=== PATIENT | female | born 1960 | race Caucasian/White ===

== ENCOUNTER → 2016-10-21 | Day surgery (SDC) | payer BC, OTHER ==
[~2016-10-21] MED LIST: Bacitracin Oint 28.35 GM Tube TOP ONE; Bupivacaine 0.25%/EPINEPHrine 1:200,000 10 ML SDV INJECT ONE; Bupivacaine 0.25%/EPINEPHrine 1:200,000 10 ML SDV ONE; Clindamycin Phosphate in D5W 600 MG in Premix Bag 50 BAG IV ONE; Lactated Ringers 1,000 ML IV SCH; Lidocaine 2% 5 ML SDV ONE; Midazolam 1 MG/ML 2 ML SDV IVPUSH ONE; Midazolam 1 MG/ML 2 ML SDV ONE; Propofol 200 MG/20 ML SDV ONE; diphenhydrAMINE 50 MG/ML SDV ONE
--- NOTE | 2016-10-21 08:57 | PCM.PREANE ---
Preanesthetic Assessment - Anesthesia/Transfusion/Family Hx Anesthesia History: Prior Anesthesia Reaction Type of Anesthesia Reaction: Excessive Nausea/Vomiting Family History of Anesthesia Reaction: No Transfusion History: No Prior Transfusion(s) - Review of Systems General: No Symptoms Pulmonary: No Symptoms Cardiovascular: No Symptoms Gastrointestinal: No symptoms Neurological: No Symptoms Other: Reports: Anxiety - Physical Assessment NPO Status Date: 10/20/16 O2 Sat by Pulse Oximetry: 94 Respiratory Rate: 15 Vital Signs: Last Vital Signs Temp 36.5 C 10/21/16 08:22 Pulse 89 10/21/16 08:22 Resp 15 10/21/16 08:22 BP 99/62 10/21/16 08:22 Pulse Ox 94 L 10/21/16 08:22 Height: 1.65 m Weight: 79.379 kg ASA Class: 2 Mental Status: Alert & Oriented x3 Airway Class: Mallampati = 2 Dentition: Reports: Normal Dentition ROM/Head Extension: Full Lungs: Clear to auscultation Cardiovascular: Regular Rate - Allergies Allergies/Adverse Reactions: Allergies Allergy/AdvReac Type Severity Reaction Status Date / Time codeine Allergy Agitation Verified 10/19/16 11:35 Penicillins Allergy Cannot Verified 10/19/16 11:35 Remember Sulfa (Sulfonamide Allergy Cannot Verified 10/19/16 11:35 Antibiotics) Remember - Anesthesia Plan Pre-Op Medication Ordered: Other (versed in pre op holding) - Acknowledgements Anesthesia Type Planned: MAC Pt an Appropriate Candidate for the Planned Anesthesia: Yes Alternatives and Risks of Anesthesia Discussed w Pt/Guardian: Yes Pt/Guardian Understands and Agrees with Anesthesia Plan: Yes PreAnesthesia Questionnaire HEENT History: Reports: Other (see below) Other HEENT History: wears glasses, has upper denture and lower removable partial denture, Hx of Warthin's tumor Cardiovascular History: Reports: High cholesterol Respiratory History: Reports: COPD Gastrointestinal History: Reports: None Genitourinary History: Reports: None BREAKER OILER History: Reports: None Musculoskeletal History: Reports: Arthritis, Back pain, chronic, Fracture Other Musculoskeletal History: hx of fx toes Neurological History: Reports: Migraines Psychiatric History: Reports: Anxiety, Depression, PTSD Endocrine/Metabolic History: Reports: Hyperparathyroidism Hematologic History: Reports: None Immunologic History: Reports: None Oncologic (Cancer) History: Reports: None Dermatologic History: Reports: None - Past Surgical History Head Surgeries/Procedures: Reports: None HEENT Surgical History: Reports: Tonsillectomy, Other (see below) Other HEENT Surgeries/Procedures: excision of vocal cord nodules Cardiovascular Surgical History: Reports: None Respiratory Surgical History: Reports: None GI Surgical History: Reports: None Female Surgical History: Reports: Cervical cryotherapy, Hysterectomy, Tubal ligation Endocrine Surgical History: Reports: Parathyroidectomy Other Endocrine Surgeries/Procedures: bilateral Neurological Surgical History: Reports: None Musculoskeletal Surgical History: Reports: None Oncologic Surgical History: Reports: None - SUBSTANCE USE Smoking Status *Q: Current Every Day Smoker Tobacco Use Within Last Twelve Months: Cigarettes Recreational Drug Use History: No - HOME MEDS Home Medications: Home Meds Albuterol Sulfate [Proventil Hfa] 1 puff INH ASDIRECTED PRN 10/19/16 [History] Diazepam [Valium] 2 mg PO ASDIRECTED PRN MDD 3 tab 10/19/16 [History] Diazepam [Valium] 2 mg PO BEDTIME 10/19/16 [History] Fluticasone/Vilanterol [Breo Ellipta 100-25 MCG Inhalation Kit] 1 dose INH DAILY 10/19/16 [History] Mirtazapine 45 mg PO DAILY 10/19/16 [History] Pravastatin Sodium 10 mg PO DAILY 10/19/16 [History] Progesterone,Micronized [Progesterone] 200 mg PO DAILY 10/19/16 [History] Sertraline HCl 150 mg PO DAILY 10/19/16 [History] Venlafaxine HCl [Venlafaxine HCl ER] 37.5 mg PO DAILY 10/19/16 [History] - CURRENT (IN HOUSE) MEDS Current Meds: Current Medications Bacitracin (Bacitracin Oint) 1 gm TOP ONETIME ONE Stop: 10/21/16 09:01 Bupivacaine HCl/Epinephrine Bitart (Marcaine 0.25%/Epinephrine 1:200,000) 10 ml INJECT ONETIME ONE Stop: 10/21/16 09:01 Clindamycin Phosphate 600 mg/ (Premix) 50 mls @ 100 mls/hr IV ONETIME ONE Stop: 10/21/16 09:29 Last Admin: 10/21/16 08:35 Dose: 100 mls/hr Lactated Ringer's (Ringers, Lactated) 1,000 mls @ 125 mls/hr IV ASDIRECTED HILARY Last Admin: 10/21/16 08:34 Dose: 125 mls/hr Midazolam HCl (Versed 1 Mg/Ml) 1 mg IVPUSH ONETIME ONE Stop: 10/21/16 08:55 Discontinued Medications Bupivacaine HCl/Epinephrine Bitart (Marcaine 0.25%/Epinephrine 1:200,000) Confirm Administered Dose 20 ml .ROUTE .STK-MED ONE Stop: 10/21/16 07:33 Lidocaine (Xylocaine-Mpf 2%) Confirm Administered Dose 5 ml .ROUTE .STK-MED ONE Stop: 10/21/16 07:18 Propofol (Diprivan 20 Ml) Confirm Administered Dose 200 mg .ROUTE .STK-MED ONE Stop: 10/21/16 07:18 Sufentanil Citrate (Sufenta) Confirm Administered Dose 50 mcg .ROUTE .STK-MED ONE Stop: 10/21/16 07:21
--- NOTE | 2016-10-21 10:58 | PCM48HPAN ---
Post Anesthesia Note - EVALUATION WITHIN 48HRS OF ANESTHETIC Vital Signs in Normal Range: Yes Patient Participated in Evaluation: Yes Respiratory Function Stable: Yes Airway Patent: Yes Cardiovascular Function Stable: Yes Hydration Status Stable: Yes Pain Control Satisfactory: Yes Nausea and Vomiting Control Satisfactory: Yes Mental Status Recovered: Yes
--- NOTE | 2016-10-21 10:58 | PCM.POSTAN ---
POST ANESTHESIA ASSESSMENT - MENTAL STATUS Mental Status: alert, oriented - RESPIRATORY Respiratory Status: respiratory rate WNL, airway patent - CARDIOVASCULAR CV Status: pulse rate WNL, blood pressure stable - GASTROINTESTINAL GI Status: no symptoms - POST OP HYDRATION Hydration Status: adequate & stable
[2016-10-21 11:56] VITALS: BP 112/59
--- NOTE | 2016-10-21 22:38 | OR ---
SURGEON: CATA SPICER MD DATE OF PROCEDURE: 10/21/2016 PREOPERATIVE DIAGNOSIS: Basal cell carcinoma, nose. POSTOP DIAGNOSIS: Basal cell carcinoma, nose, 1 cm2. PROCEDURE: 1. Excision of nose basal cell carcinoma, 1 cm2, at the very nasal tip. 2. Local tissue rearrangement with flap closure of total size 3 x 1 cm. OUTSIDE B2B SALES: Danii Kulkarni. INDICATIONS: Ms. Noel is a 56-year-old female with biopsy-proven basal cell carcinoma to her nose. She has positive margins. Risks and benefits of excision for negative margins and flap closure were discussed with her and she was in agreement to proceed. Given the location, it is likely to need flap closure and will not be allowed to close primarily. Risks and benefits of removal were discussed, including, but not limited to, bleeding, infection, damage to underlying or overlying structures, possible need for future interventions and possible scarring. PROCEDURE IN DETAIL: After informed consent was obtained and placed on the chart, the patient was brought to the operating theater and laid in the supine position. After adequate local MAC anesthetic was obtained, the area was prepped and draped with a Betadine cleansing solution and a time-out was completed to confirm side and site. Local anesthetic was infiltrated into the area and a 15 blade was used to dissect around the lesion itself. A marking stitch was placed at 12 o'clock, and this was sent for frozen sections, Frozen sections came back as negative and then a flap closure was planned in the nasolabial fold and lateral nasal alar area has a V-Y advancement local tissue rearrangement for a total size of 3 x 1 cm. This was cut, elevated, and freed to allow appropriate advancement, but maintain blood supply. Once this was completed, it was sutured in place using deep 4-0 Monocryl stitches and a running 6-0 Prolene for the skin. The wound was dressed with Steri-Strips per the patient's request. The flap was good, viable, and inset very nicely without tethering of the nose at the end the case. FOLLOWUP INSTRUCTIONS: The patient will see us in 1 week in clinic sooner if any problems, questions, or concerns. She was given a prescription for tramadol. HEGGTHE / DARNELL /[id number]
== END | disposition home or self-care (01) ==
LOC: MW.SDS 08:00
PROVIDERS: ATTEND Plastic Surgery
PROC: 0HB1XZZ Excision of Face Skin, External Approach (ICD-10-PCS; principal; 2016-10-21)
PROC: 0HX1XZZ Transfer Face Skin, External Approach (ICD-10-PCS; 2016-10-21)
DX: C44.311 Basal cell carcinoma of skin of nose (principal); F41.9 Anxiety disorder, unspecified; M19.90 Unspecified osteoarthritis, unspecified site; F31.9 Bipolar disorder, unspecified; J44.9 Chronic obstructive pulmonary disease, unspecified; E78.00 Pure hypercholesterolemia, unspecified; F17.210 Nicotine dependence, cigarettes, uncomplicated; E21.3 Hyperparathyroidism, unspecified; Z88.0 Allergy status to penicillin; Z88.2 Allergy status to sulfonamides; Z88.5 Allergy status to narcotic agent; Z79.899 Other long term (current) drug therapy; Z98.51 Tubal ligation status; Z90.710 Acquired absence of both cervix and uterus; Z90.89 Acquired absence of other organs; Z98.890 Other specified postprocedural states
CPT/HCPCS: 14060; J1200; J2250; J7120; 00300; 88305; 88331; J2704

== ENCOUNTER 2023-07-11 11:30 | Emergency (ER) | payer SELFPAY ==
[2023-07-11 12:53] VITALS: BP 106/55; PULSE 84
[2023-07-11] MEDS ORDERED: Orphenadrine 60 MG/2 ML Inj IM ONE (13:42)
[2023-07-11] MEDS ORDERED: predniSONE 20 MG Tab PO STA (13:42)
[2023-07-11] MEDS ORDERED: Ketorolac 30 MG/ML SDV IM STA (13:42)
== END 2023-07-11 15:10 | disposition home or self-care (01) ==
LOC: MW.ED 11:30
DX: M54.41 Lumbago with sciatica, right side (principal); E78.00 Pure hypercholesterolemia, unspecified; J44.9 Chronic obstructive pulmonary disease, unspecified; Z88.5 Allergy status to narcotic agent; Z88.0 Allergy status to penicillin; Z88.2 Allergy status to sulfonamides; Z79.899 Other long term (current) drug therapy; Z90.710 Acquired absence of both cervix and uterus
CPT/HCPCS: 73502; 96372; 99283; A9270; J1885; J2360